=== PATIENT | male | born 1945 | race Caucasian/White ===

== ENCOUNTER 2018-02-02 10:55 | Outpatient (CLI) | payer BC ==
[2018-02-02] MEDS ORDERED: MULT-1085 PO (11:48)
[2018-02-02 12:45] LABS: CLARITY,URINE CLEAR (Clear); COLOR,URINE YELLOW (Yellow); GLUCOSE, URINE NEGATIVE (Neg); KETONES,URINE NEGATIVE (Neg); LEUKOCYTE ESTERASE ,URINE NEGATIVE (Neg); NITRITES, URINE NEGATIVE (Neg); OCCULT BLOOD,URINE NEGATIVE (Neg); PROTEIN,URINE NEGATIVE (Neg); UROBILINOGEN,URINE 0.2 E.U/dL (0.2-1.0)
[2018-02-02 12:46] LABS: UA COLLECTION TYPE VOIDED
[2018-02-02 12:46] LABS: BASOPHILS # (AUTO) 0.1 X10'3 (0-0.2); EOSINOPHILS # (AUTO) 0.1 X10'3 (0-0.9); EOSINOPHILS % (AUTO) 2.2 % (0-6); LYMPHOCYTES % (AUTO) 17.4 % (21-51); MEAN CORPUSCULAR HEMOGLOBIN 31.2 PG (27.0-31.0); MEAN CORPUSCULAR HGB CONC 34.3 % (33.0-36.5); MEAN PLATELET VOLUME 8.2 FL (7.4-10.4); MONOCYTES # (AUTO) 0.6 X10'3 (0-0.9); MONOCYTES % (AUTO) 9.5 % (2-12); NEUTROPHILS # (AUTO) 4.1 X10'3 (1.8-7.7); NEUTROPHILS % (AUTO) 69.9 % (42-75); PRE OP HEMOGLOBIN 14.1 g/dL (14.0-17.9); PRE OP PLATELET COUNT 215 X10'3 (140-440); RED BLOOD COUNT 4.51 X10'6 (4.70-6.10); RED CELL DISTRIBUTION WIDTH 14.1 % (11.5-14.5)
[2018-02-02 12:54] LABS: PRE OP PROTIME 10.1 SECONDS (9.0-12.0)
[2018-02-02 12:57] LABS: ALBUMIN 3.9 G/DL (3.4-5.0); ALBUMIN/GLOBULIN RATIO 1.1 (1.1-1.5); ALKALINE PHOSPHATASE 62 IU/L (46-116); BLOOD UREA NITROGEN 21 MG/DL (7-18); CALCIUM 8.8 MG/DL (8.5-10.1); CHLORIDE 106 MMOL/L (99-107); CREATININE 0.84 MG/DL (0.60-1.10); PRE OP ALT 24 U/L (30-65); PRE OP ANION GAP 7 (8-16); PRE OP AST 16 U/L (10-37); PRE OP BILIRUB, TOTAL 0.7 MG/DL (0.0-1.0); PRE OP GLUCOSE 91 MG/DL (70-104); PRE OP POTASSIUM 4.1 MMOL/L (3.4-5.1); PRE OP SODIUM 142 MMOL/L (135-145); TOTAL CARBON DIOXIDE 29.4 MMOL/L (24-32); TOTAL PROTEIN 7.3 G/DL (6.4-8.2); eGFR 90 ML/MIN
== END 2018-02-02 23:59 | disposition home or self-care (01) ==
LOC: PRE-OP 10:55 → EDSTATUS 02-09 07:30
PROVIDERS: ATTEND Orthopaedic Surgery
DX: M87.052 Idiopathic aseptic necrosis of left femur (principal); Z53.9 Procedure and treatment not carried out, unspecified reason; Z68.25 Body mass index [BMI] 25.0-25.9, adult; M12.552 Traumatic arthropathy, left hip; Z87.891 Personal history of nicotine dependence; I10 Essential (primary) hypertension
CPT/HCPCS: 36415; 71046; 80053; 81003; 85025; 85610; 85730; 86885; 86900; 86901; 87070

== ENCOUNTER 2018-03-09 07:30 | Inpatient (IN) | payer BC ==
[~2018-03-09] VITALS: Ht 182.9 cm; Wt 84.5 kg
[2018-03-09] VITALS (18 sets, daily range): BP systolic 96–147; BP diastolic 54–89
[~2018-03-09 07:30] MED LIST: LISI40TA4 PO; MORPHINE 2MG in 2ml NS syringe IV PRN; MULT-1085 PO; TERA10CA4 PO; acetaminophen 325mg tablet PO ONE; acetaminophen 325mg tablet PO PRN; bisacodyl 10mg suppository rectal RC PRN; celeCOXIB 100mg capsule PO ONE; clindamycin-Cleocin 900mg/D5W 50 ML IV ONE; diphenhydrAMINE 25mg capsule PO PRN; famotidine 20mg tablet PO ONE; gabapentin 300mg capsule PO ONE; magnesium hydroxide 30ml (MOM) UD suspension PO PRN; metoclopramide 5 mg/ml inj IV ONE; ondansetron/PF 4mg/2ml inj IV PRN; oxyCODONE SR 10mg (sust. release) tab PO ONE; oxyCODONE/APAP 10/325mg tablet PO PRN; ringers solution, lacted 1,000 ML IV SCH; tranexamic acid inj. 1,000 MG in normal saline 100ml IV soln 90 ML IV ONE; vancomycin inj 1,500 MG in normal saline 300ml IV soln IV ONE
[2018-03-09] MEDS ORDERED: morphine 10mg/ml inj. IV PRN (07:36)
[2018-03-09] MEDS: gabapentin 300mg capsule PO SCH ×3 (08:00→20:35)
[2018-03-09] MEDS: multivitamins, therapeutics tablet PO SCH (08:00)
[2018-03-09] MEDS: terazosin 5mg capsule PO SCH (08:00)
[2018-03-09] MEDS: ascorbic acid 500mg tablet PO SCH ×2 (08:00→20:36)
[2018-03-09] MEDS: lisinopril 20mg tablet PO SCH (08:00)
[2018-03-09] MEDS: aspirin 325mg tablet PO SCH (08:30)
[2018-03-09 08:47] LABS: BASOPHILS % (AUTO) 0.7 % (0-1); EOSINOPHILS # (AUTO) 0.1 X10'3 (0-0.9); EOSINOPHILS % (AUTO) 2.1 % (0-6); LYMPHOCYTES # (AUTO) 0.8 X10'3 (1.1-4.8); LYMPHOCYTES % (AUTO) 14.1 % (21-51); MEAN CORPUSCULAR HEMOGLOBIN 31.4 PG (27.0-31.0); MEAN CORPUSCULAR HGB CONC 34.5 % (33.0-36.5); MEAN CORPUSCULAR VOLUME 90.9 FL (78-98); MEAN PLATELET VOLUME 7.8 FL (7.4-10.4); MONOCYTES # (AUTO) 0.3 X10'3 (0-0.9); MONOCYTES % (AUTO) 6.4 % (2-12); NEUTROPHILS # (AUTO) 4.1 X10'3 (1.8-7.7); NEUTROPHILS % (AUTO) 76.7 % (42-75); PRE OP HEMATOCRIT 41.9 % (42.0-52.0); PRE OP HEMOGLOBIN 14.4 g/dL (14.0-17.9); PRE OP PLATELET COUNT 223 X10'3 (140-440); RED CELL DISTRIBUTION WIDTH 14.8 % (11.5-14.5)
[2018-03-09] MEDS ORDERED: LIDOcaine 1% (10mg/ml) 2ml vial ONE (08:59)
[2018-03-09 09:01] LABS: ALBUMIN 3.8 G/DL (3.4-5.0); ALKALINE PHOSPHATASE 72 IU/L (46-116); BLOOD UREA NITROGEN 19 MG/DL (7-18); BUN/CREATININE RATIO 22.9 (5.4-32.0); CALCIUM 8.8 MG/DL (8.5-10.1); CHLORIDE 106 MMOL/L (99-107); CREATININE 0.83 MG/DL (0.60-1.10); PRE OP ALT 27 U/L (30-65); PRE OP ANION GAP 10 (8-16); PRE OP AST 21 U/L (10-37); PRE OP BILIRUB, TOTAL 0.6 MG/DL (0.0-1.0); PRE OP GLUCOSE 110 MG/DL (70-104); PRE OP POTASSIUM 4.1 MMOL/L (3.4-5.1); PRE OP SODIUM 143 MMOL/L (135-145); TOTAL CARBON DIOXIDE 27.4 MMOL/L (24-32); TOTAL PROTEIN 7.6 G/DL (6.4-8.2); eGFR > 90 ML/MIN
[2018-03-09] MEDS ORDERED: ROPIVAcaine 0.5% (5mg/ml) 30ml vial ONE (10:31)
[2018-03-09] MEDS ORDERED: ketorolac trometh. 30mg/ml inj. ONE (10:31)
[2018-03-09] MEDS ORDERED: cloNIDine hcl/PF 100mcg/ml inj ONE (10:31)
[2018-03-09] MEDS ORDERED: vancomycin 1,000mg inj ONE (10:31)
[2018-03-09] MEDS ORDERED: epiNEPHrine 1 mg/ml inj ONE (10:31)
[2018-03-09] MEDS ORDERED: morphine /PF 1mg/ml 10ml inj. ONE (10:42)
[2018-03-09] MEDS ORDERED: midazolam 2 mg/2 ml injection ONE (10:43)
[2018-03-09 11:08] LABS: CLARITY,URINE CLEAR (Clear); COLOR,URINE YELLOW (Yellow); GLUCOSE, URINE NEGATIVE (Neg); KETONES,URINE NEGATIVE (Neg); LEUKOCYTE ESTERASE ,URINE NEGATIVE (Neg); NITRITES, URINE NEGATIVE (Neg); OCCULT BLOOD,URINE NEGATIVE (Neg); PROTEIN,URINE NEGATIVE (Neg); UROBILINOGEN,URINE 0.2 E.U/dL (0.2-1.0)
[2018-03-09 11:09] LABS: UA COLLECTION TYPE NON-SPECIFIED
[2018-03-09] MEDS ORDERED: glycopyrrolate 0.2mg/ml inj ONE (11:36)
[2018-03-09] MEDS ORDERED: BUPIVAcaine/PF 2.5 mg/ml (0.25%) 30ml vial ONE (11:36)
[2018-03-09] MEDS ORDERED: sevoflurane 250ml liquid IH ONE (11:36)
[2018-03-09] MEDS ORDERED: ePHEDrine 50MG/ML INJ. ONE (12:13)
[2018-03-09] MEDS ORDERED: ondansetron/PF 4mg/2ml inj ONE (12:35)
[2018-03-09] MEDS ORDERED: dexamethasone sod phosphate 4mg/ml inj. ONE (12:35)
[2018-03-09] MEDS ORDERED: ringers solution, lacted 1,000 ML IV SCH (14:44)
[2018-03-09] MEDS ORDERED: proCHLORperazine 10 MG/2 ml inj IV PRN (14:45)
[2018-03-09] MEDS ORDERED: fentaNYL/PF 50MCG/1 ML 2ML syringe IV PRN (14:45)
[2018-03-09] MEDS ORDERED: HYDROmorphone inj. 0.5 MG/0.5 ML DISP.SYRIN IV PRN (14:45)
[2018-03-09] MEDS ORDERED: ondansetron/PF 4mg/2ml inj IV PRN (14:45)
[2018-03-09] MEDS: potassium cl 20mEq in 1/2 NS 1,000 ML IV SCH ×3 (16:15→23:53)
[2018-03-09] MEDS: clindamycin-Cleocin 900mg/D5W 50 ML IV SCH ×2 (16:15→23:53)
[2018-03-09] MEDS: sennosides 8.6mg tablet PO SCH (20:36)
[2018-03-10 02:00] VITALS: BP 116/70
[2018-03-10] MEDS: oxyCODONE/APAP 10/325mg tablet PO PRN ×4 (05:19→20:27)
[2018-03-10 06:00] VITALS: BP 131/90
[2018-03-10 06:05] LABS: BASOPHILS % (AUTO) 0.2 % (0-1); EOSINOPHILS # (AUTO) 0.1 X10'3 (0-0.9); EOSINOPHILS % (AUTO) 1.4 % (0-6); HEMATOCRIT 33.4 % (42.0-52.0); HEMOGLOBIN 11.4 g/dl (14.0-17.9); LYMPHOCYTES % (AUTO) 10.7 % (21-51); MEAN CORPUSCULAR HEMOGLOBIN 31.2 PG (27.0-31.0); MEAN CORPUSCULAR HGB CONC 34.3 % (33.0-36.5); MEAN CORPUSCULAR VOLUME 90.9 FL (78-98); MONOCYTES % (AUTO) 10.7 % (2-12); NEUTROPHILS # (AUTO) 6.9 X10'3 (1.8-7.7); PLATELET COUNT 192 X10'3 (140-440); RED BLOOD COUNT 3.67 X10'6 (4.70-6.10); RED CELL DISTRIBUTION WIDTH 14.4 % (11.5-14.5)
[2018-03-10 06:20] LABS: ANION GAP 9 (8-16); CHLORIDE 106 MMOL/L (99-107); POTASSIUM 4.6 MMOL/L (3.5-5.1); SODIUM 139 MMOL/L (135-145); TOTAL CARBON DIOXIDE 24.1 MMOL/L (24-32)
[2018-03-10] MEDS: gabapentin 300mg capsule PO SCH ×3 (07:09→20:26)
[2018-03-10] MEDS: aspirin 325mg tablet PO SCH (07:09)
[2018-03-10] MEDS: ascorbic acid 500mg tablet PO SCH ×2 (07:09→20:26)
[2018-03-10] MEDS: multivitamins, therapeutics tablet PO SCH (07:10)
[2018-03-10] MEDS: clindamycin-Cleocin 900mg/D5W 50 ML IV SCH (07:10)
[2018-03-10] MEDS: terazosin 5mg capsule PO SCH (07:12)
[2018-03-10] MEDS: lisinopril 20mg tablet PO SCH (07:12)
[2018-03-10] MEDS: potassium cl 20mEq in 1/2 NS 1,000 ML IV SCH (08:53)
[2018-03-10 10:00] VITALS: BP 116/65
[2018-03-10] MEDS ORDERED: ASPI-1 PO (10:19)
[2018-03-10 14:00] VITALS: BP 109/70
[2018-03-10 18:00] VITALS: BP 160/70
[2018-03-10] MEDS ORDERED: Protein Shake (high protein) 240ml (8oz) cup PO SCH (18:00)
[2018-03-10] MEDS: lactobacillus rhamnosus 10,000 MMU CELLS/CAPSULE PO SCH (20:26)
[2018-03-10] MEDS: sennosides 8.6mg tablet PO SCH (20:26)
[2018-03-10 22:00] VITALS: BP 148/78
[2018-03-11] MEDS: oxyCODONE/APAP 10/325mg tablet PO PRN ×3 (00:57→09:15)
[2018-03-11 05:44] LABS: BASOPHILS % (AUTO) 0.6 % (0-1); EOSINOPHILS # (AUTO) 0.3 X10'3 (0-0.9); HEMATOCRIT 33.2 % (42.0-52.0); HEMOGLOBIN 11.4 g/dl (14.0-17.9); LYMPHOCYTES # (AUTO) 1.5 X10'3 (1.1-4.8); LYMPHOCYTES % (AUTO) 20.6 % (21-51); MEAN CORPUSCULAR HEMOGLOBIN 31.3 PG (27.0-31.0); MEAN CORPUSCULAR HGB CONC 34.4 % (33.0-36.5); MEAN CORPUSCULAR VOLUME 91.2 FL (78-98); MEAN PLATELET VOLUME 7.9 FL (7.4-10.4); MONOCYTES # (AUTO) 0.9 X10'3 (0-0.9); MONOCYTES % (AUTO) 12.6 % (2-12); NEUTROPHILS # (AUTO) 4.4 X10'3 (1.8-7.7); NEUTROPHILS % (AUTO) 62.2 % (42-75); PLATELET COUNT 170 X10'3 (140-440); RED BLOOD COUNT 3.64 X10'6 (4.70-6.10); RED CELL DISTRIBUTION WIDTH 15.3 % (11.5-14.5); WHITE BLOOD COUNT 7.1 X10'3 (4.5-11.0)
[2018-03-11 06:00] VITALS: BP 121/72
[2018-03-11] MEDS: terazosin 5mg capsule PO SCH (07:33)
[2018-03-11] MEDS: multivitamins, therapeutics tablet PO SCH (07:33)
[2018-03-11] MEDS: lactobacillus rhamnosus 10,000 MMU CELLS/CAPSULE PO SCH (07:33)
[2018-03-11] MEDS: ascorbic acid 500mg tablet PO SCH (07:33)
[2018-03-11] MEDS: gabapentin 300mg capsule PO SCH (07:33)
[2018-03-11] MEDS: aspirin 325mg tablet PO SCH (07:34)
[2018-03-11] MEDS: lisinopril 20mg tablet PO SCH (07:34)
== END 2018-03-11 12:35 | disposition home or self-care (01) | DRG 470 ==
LOC: EDSTATUS 07:30 → PAS IN 08:06 → EDSTATUS 10:30 → ORTHO 4S 15:45
PROVIDERS: ADMIT Orthopaedic Surgery; ATTEND Orthopaedic Surgery
PROC: 0SPB04Z Removal of Internal Fixation Device from Left Hip Joint, Open Approach (ICD-10-PCS; 2018-03-09)
PROC: 0SRB06Z Replacement of Left Hip Joint with Oxidized Zirconium on Polyethylene Synthetic Substitute, Open Approach (ICD-10-PCS; principal; 2018-03-09 11:36)
DX: M87.352 Other secondary osteonecrosis, left femur (principal); D62 Acute posthemorrhagic anemia; M12.552 Traumatic arthropathy, left hip; N40.0 Benign prostatic hyperplasia without lower urinary tract symptoms; I10 Essential (primary) hypertension; Z79.82 Long term (current) use of aspirin; Z79.899 Other long term (current) drug therapy; Z87.891 Personal history of nicotine dependence
CPT/HCPCS: 36415; 72170; 80051; 80053; 81003; 85025; 86885; 86900; 86901; 87070; 87075; 87176; 97110; 97116; 97161; 97530; A4615; A7000; C1758; C1776; J0171; J0735; J1100; J1885; J2250; J2274; J2405; J2765; J2795; J3370; J3490; J7030; J7120